=== PATIENT | female | born 1955 | race African-American/Black ===

== ENCOUNTER 2017-10-25 08:31 | Inpatient (IN) ==
--- NOTE | 2017-10-25 08:41 | Discharge Summary ---
<Lisbeth Clifton - Last Filed: 10/25/17 08:39> Orders not resulted at time of discharge: Pending orders 10/25/17 06:52 XR knee RT limited 1-2V [XR] Routine 10/25/17 08:38 H/H [Hemoglobin and Hematocrit] [HEME] Routine Date of Encounter: 10/25/17 - Discharge Diagnosis (1) Arthritis of knee, right Priority: Primary Status: Acute (2) Status post total knee replacement, right Priority: Primary Status: Acute - Hospital Course Hospital course: Ms. Govea is a 62 year old female - Time Spent with Patient Total time spent providing and/or coordinating discharge services: - Discharge Medications Home Medications: Aspirin Enteric Coated [Aspirin EC] 325 mg PO BID #20 tablet.dr 10/25/17 [Rx] Aspirin [Lo-Dose Aspirin EC] 81 mg PO DAILY 10/25/17 [History] Naproxen Sodium [Aleve] 220 mg PO Q12H PRN 10/25/17 [History] OxyCODONE Immed Rel [Roxicodone 5 MG] 5 mg PO Q6HR PRN 7 Days #28 tablet [Rx] Allergies/Adverse Reactions: 3 Allergy/AdvReac Type Severity Reaction Status Date / Time No Known Allergies Allergy Verified 10/25/17 09:14 Primary care physician: Marty Hernandez, - Patient Status Disposition: Home, Self-Care Condition: Good - Discharge Instructions Follow Up With: Marty Hernandez DO [Primary Care Provider] - <David Gerardo - Last Filed: 10/27/17 08:10> Orders not resulted at time of discharge: Pending orders 10/25/17 06:52 XR knee RT limited 1-2V [XR] Routine 10/25/17 08:38 H/H [Hemoglobin and Hematocrit] [HEME] Routine Date of Encounter: 10/27/17 Time of Encounter: 08:09 - Discharge Diagnosis (1) Obesity (BMI 30.0-34.9) Priority: Secondary Status: Chronic (2) Arthritis of knee, right Priority: Primary Status: Chronic (3) Status post total knee replacement, right Priority: Primary Status: Acute - Hospital Course Hospital course: Ms. Govea is a 62 year old female Status post right total knee replacement. The patient had an uneventful postoperative course. They received antibiotics and physical therapy and were discharged in stable condition. There will follow -up in the office in 2 weeks. - Time Spent with Patient Total time spent providing and/or coordinating discharge services: Primary care physician: Marty Hernandez, - Patient Status Functional capacity at discharge: uses cane/walker Overall status at discharge: patient is progressing back to baseline
[2017-10-25] MEDS ORDERED: Lidocaine -MPF 1% 2 ML VIAL ID ONE (08:56)
[2017-10-25] MEDS ORDERED: CeFAZolin Syr 2,000MG/20 ML 2,000 MG/20 ML SYRINGE IVPB ONE (08:56)
--- NOTE | 2017-10-25 08:59 | History & Physical Report ---
Date of Encounter: 10/25/17 Time of Encounter: 08:58 24 Hour HP Update - Instructions Instructions: If the History and Physical is less than 30 days old and was completed prior to A.M. admission and or procedure and has NOT been updated on calendar day of procedure please complete this update prior to performing procedure. - Update Patient reports changes in Medical Condition: No Changes in examination, assessment, or condition: No Changes in Medication: No Preop tests/diagnostics Reviewed: Yes Surgery Remains Indicated: Yes Consent for Planned Operative Procedure(s) Verified: Yes - Pre-Operative Checklist Preoperative Checklist Indicated: No Prophylactic Antibiotic Ordered: Yes Is VTE Prophylaxis Indicated?: Yes
[2017-10-25] MEDS ORDERED: Ringers Solution, Lactated 1,000 ML IVC SCH (09:00)
--- NOTE | 2017-10-25 09:03 | Anesthesia Evaluation PreOp ---
Date of Encounter: 10/25/17 Time of Encounter: 09:00 - Past History Planned Operation: Right Total Knee Arthroplasty Cardiac History: Denies any Significant Hx Pulmonary History: Denies Any Significant HX [employer] History: Denies Any Significant HX Other Medical History: Denies Any Significant HX, Other (knee osteoarthritis) Anesthesia History: No Prior Anesthetic Complications, Past Anesthesia (tubal) : No Alcohol Use: none Drug use: none Medications and Allergies Aspirin Enteric Coated [Aspirin EC] 325 mg PO BID #20 tablet.dr 10/25/17 [Rx] OxyCODONE Immed Rel [Roxicodone 5 MG] 5 mg PO Q6HR PRN 7 Days #28 tablet [Rx] 3 Allergy/AdvReac Type Severity Reaction Status Date / Time No Known Allergies Allergy Unverified 10/18/17 09:57 - Meds/Allergy Pre-op Review Medications Reviewed: Yes Allergies Reviewed: Yes Beta Blockers on Current Med List: No Anesthesia Results - Labs Laboratory Tests 10/18/17 10/18/17 10/18/17 10:05 10:05 10:05 WBC 3.7 L Hgb 14.0 Hct 45.1 H Plt Count 199 INR 1.0 Sodium 138 Potassium 4.3 Chloride 106 Carbon Dioxide 23 BUN 17 Creatinine 0.62 Anesthesia Exam O2 Sat Height 1.52 m Height 1.52 m Weight 69.853 kg Weight 69.853 kg O2 Sat by Pulse Oximetry 96 Vital Signs Temp Pulse Resp BP Pulse Ox 98.2 F 57 18 118/75 96 10/25/17 08:56 10/25/17 08:56 10/25/17 08:56 10/25/17 08:56 10/25/17 08:56 NPO (# of Hours): > 8 hrs Pain Scale: 0 Pain Scale Used: Numeric (1 - 10) - HEENT Pupil (Motor): Pupils equal, EOMI Mallampati: III Teeth: Normal Oral Opening: Greater than 3 - [employer] LOC: Oriented [employer] Motor: Normal RUE, Normal LUE, Normal RLE, Normal LLE, Normal Face [employer] Sensory: Normal: RUE, LUE, RLE, LLE, Face - Cardiac Rhythm: Regular Murmur: None JVD: No Carotid Bruit: No - Pulmonary Breath Sounds: bilateral Clear Respiratory Effort: Symmetrical Anesthesia Assess/Plan ASA Score: 1 Modified Rc Scale for Level of Consciousness: Cooperative, oriented, and tranquil Anesthetic Plan: General, Regional (Right Fem. Nerve Block) Autologous Blood: Yes Monitoring Plan: Standard Monitors Recovery Plan: PACU
[2017-10-25] MEDS ORDERED: *HR* Propofol 200 MG/20 ML VIAL IVP ONE (09:37)
[2017-10-25] MEDS ORDERED: *HR* Midazolam HCl 2 MG/2 ML VIAL ONE (09:37)
[2017-10-25] MEDS ORDERED: *HR* FentaNYL (PF) 100 MCG/2 ML VIAL ONE (09:37)
[2017-10-25] MEDS ORDERED: Ethanol\\Acetic Acid\\Na Ace\\Ben 1,000 ML IRRIG.SOLN IR ONE (09:38)
[2017-10-25] MEDS ORDERED: Lidocaine -MPF 2% 2 ML VIAL ONE (09:39)
[2017-10-25] MEDS ORDERED: ROPIVACAINE HCL/PF 0.5% 30 ML VIAL ONE (09:40)
[2017-10-25] MEDS ORDERED: Bupivacaine/Clonidine Syringe 1 EACH SYRINGE ONE (09:46)
--- NOTE | 2017-10-25 10:01 | Anesthesia Procedures ---
Date of Encounter: 10/25/17 Time of Encounter: 09:58 Procedures: Anesthesia - Nerve Block Procedure Date: 10/25/17 Time: 09:58 Allergies/Adv Reactions: No Known Allergies Allergy (Verified 10/25/17 09:14) Pre-op Diagnosis: right knee oa Surgical Procedure: right total knee Checklist: Correct Patient Identifier, Correct procedure, History checked Correct side: Right Blood Thinner: No Monitor Applied: EKG, BP, Pulse Oximetry Supplemental Oxygen via Nasal Cannula (L/min): 2 Sedation: Versed (mg): 2 Sedation: Fentanyl (mcg): 50 Indication: Post Op Analgesia Pre-op Neuro Deficits: No Block Type: Femoral, Other (ipack) Catheter placed: No Sterile Technique: Yes Ultrasound used: Yes Anatomy identified: Yes Visual spread of Local: Yes Neuro Stimulation: No Blood on Needle Aspiration: No Smooth Injection of Local: Yes Pain with Injection of Local: No Prep: Chlorhexadine Needle: 22 x 50 mm Stimuplex Local: 0.25% Bupivicaine w/Clonidine 20 mcg/cc (ipack-20cc), Ropivacaine (0.5% femoral 30cc) Volume (cc): 50 Number of Attempts: 1 Complications: None/effective block
[2017-10-25] MEDS ORDERED: Ondansetron 4 MG/2 ML VIAL ONE (10:15)
[2017-10-25] MEDS ORDERED: Dexamethasone 4 MG/ML VIAL ONE (10:15)
[2017-10-25] MEDS ORDERED: *HR* HYDROmorphone 2 MG TABLET PO PRN (10:36)
[2017-10-25] MEDS ORDERED: Ondansetron 4 MG/2 ML VIAL IVP ONE (10:36)
[2017-10-25] MEDS ORDERED: *HR* OxyCODONE Immed Rel 5 MG TABLET PO PRN (10:36)
--- NOTE | 2017-10-25 10:42 | Orthopedic Operative Note ---
Date of procedure: 10/25/17 Pre-op diagnosis: Right knee arthritis Post-op diagnosis: same Procedure: Procedure: Right Total knee replacement Estimated blood loss: 200 cc Hardware: Metal and polyethylene replacement. Arthrex Femur: 3 Tibia: 3 PS insert: 14 Patella: 30 Exam Under anesthesia: Loss of full extension 20 degrees flexion to 90 degrees. Varus alignment. Procedural Notes: Grade 4 arthritic changes all 3 compartments. Operative procedure: The patient was brought to the operating room and placed on the operating room table. After general anesthesia was administered the operative knee was examined. Findings were noted in the exam under anesthesia. The operative extremity was prepped and draped in sterile surgical fashion. The patient received IV antibiotics prior to skin incision. A standard midline incision was made centered over the patella. The incision was made through the skin and subcutaneous tissue. A medial parapatellar tendon approach was performed. Care was taken to preserve tissue along the medial aspect of the patella. And to protect the patella tendon. The deep MCL was released off the medial tibia. The infra patella fat pad was excised. Knee was brought into flexion. Patient noted to have grade 4 arthritic changes all 3 compartments. The entry hole was made for the intramedullary femoral guide. The guide was seated in 6 degrees of valgus. Anterior cut was made followed by the distal cut. The ACL the PCL the medial and the lateral menisci were excised. The tibia was subluxed forward. The entry hole was made for the intramedullary tibial guide. Guide was seated to resect 2 mm off the more abnormal side. The knee was brought into flexion the distal femur was sized to a 4. The femoral guide was seated, the anterior cut was made followed by the posterior condylar cut, followed by the chamfer cuts. The finishing guide was seated the box cut was made and the lug holes were drilled. The tibia was sized to a 4, the tibial tray was seated and prepared with the large drill followed by the fin cutter. Trial reduction revealed full extension no varus valgus instability with the appropriate 14 PS Karina. The patella was everted and cut was made at the level of the insertion of the quadriceps and patella tendon. The patella was sized 30 the guide was seated and the lug holes are drilled. Trial reduction revealed excellent patella tracking. All trial components were removed all bony surfaces were irrigated. The tibia was cemented first followed by the femur. 14 PS Karina was seated and the knee was brought into full extension. The patella was cemented and held in place with the patellar holding clamp. After the cement had hardened, the knee sat for 2 minutes with a antibacterial solution. The knee was then irrigated out with 2 L of pulse irrigation. The extensor mechanism was closed with #2 FiberWire suture and #2 PDS suture. The subcutaneous tissue was then irrigated and closed deep with #1 PDS suture superficially with 0 PDS suture and skin was closed with skin collins. The patient was then placed in a sterile dressing and a postoperative brace extubated and transferred to recovery room in stable condition. Anesthesia: GETA Surgeon: David Gerardo Was there an accountant assistant present: Yes Registrar Museum: Lisbeth Clifton Estimated blood loss (cc): 200 Condition: stable Disposition: PACU
[2017-10-25] MEDS: MORPHINE SUL Oral CONC 10 MG/0.5 ML ORAL.SYG SL PRN ×2 (11:41→11:50)
[2017-10-25 11:55] LABS: Hematocrit 42.1 % (35.3-44.9)
--- NOTE | 2017-10-25 11:58 | Anesthesia Evaluation Post Op ---
Date of Encounter: 10/25/17 Time of Encounter: 11:57 - Vital Signs Vital Signs: Vital Signs/O2 Sat, Most Current Temp Pulse Resp BP Pulse Ox 97.6 F 65 18 129/71 94 10/25/17 11:40 10/25/17 11:40 10/25/17 11:40 10/25/17 11:40 10/25/17 11:40 - Lungs Lungs: Clear Ascult./Percussion - Airway Airway: Non-obstructed - Cardiovascular Regular Rate - Mental Status Mental Status: Asleep with brisk response to light stimulation - Pain Pain Scale used: Mariia (Faces) (appears comfoertable) - Nausea Vomiting Nausea Vomiting: Not Present - Hydration Hydration: NPO - Discharge PostOp Status: Transfer Patient to floor
[2017-10-25] MEDS ORDERED: Temazepam 15 MG CAPSULE PO PRN (12:07)
[2017-10-25] MEDS ORDERED: MOM Conc 10 ML UD.LIQ PO PRN (12:07)
[2017-10-25] MEDS ORDERED: Ondansetron 4 MG/2 ML VIAL IVP PRN (12:07)
[2017-10-25] MEDS ORDERED: Sennosides 8.6 MG TABLET PO PRN (12:07)
[2017-10-25] MEDS ORDERED: Naloxone 0.4 MG/ML INJ IVP PRN (12:07)
[2017-10-25] MEDS ORDERED: traMADol 50 MG TABLET PO PRN (12:07)
[2017-10-25] MEDS: Ringers Solution, Lactated 1,000 ML IVC SCH (13:43)
[2017-10-25] MEDS: CeFAZolin Pre 2,000 MG/100 ML 2,000 MG/100 ML BAG IVPB SCH (16:40)
[2017-10-25] MEDS: *HR* Enoxaparin 30 MG/0.3 ML SYRINGE SQ SCH (16:41)
[2017-10-25] MEDS: *HR* OxyCODONE Immed Rel 5 MG TABLET PO PRN (16:42)
[2017-10-25] MEDS ORDERED: *HR* Enoxaparin 30 MG/0.3 ML SYRINGE SQ SCH (18:00)
[2017-10-25] MEDS: *HR* OxyCODONE/APAP 5/325 TABLET PO PRN (22:38)
[2017-10-26] MEDS: CeFAZolin Pre 2,000 MG/100 ML 2,000 MG/100 ML BAG IVPB SCH (00:55)
[2017-10-26 02:28] LABS: Hematocrit 36.2 % (35.3-44.9)
[2017-10-26 02:33] LABS: Hemoglobin 11.4 g/dL (11.5-15.4)
[2017-10-26 02:50] LABS: BUN/Creatinine Ratio 21 (6-26); Blood Urea Nitrogen 15 mg/dL (8-23); Calcium 8.6 mg/dL (8.6-10.3); Carbon Dioxide 27 mEq/L (23-29); Chloride 103 mEq/L (98-107); Glucose 124 mg/dL (70-105); Osmolality,Calculated 284 (280-300); Potassium 3.9 mEq/L (3.5-5.1); Sodium 136 mEq/L (136-145); eGFR For African Americans > 60 (> 60); eGFR For Non-African Americans > 60 (> 60)
[2017-10-26] MEDS: *HR* OxyCODONE Immed Rel 5 MG TABLET PO PRN ×4 (04:38→20:46)
[2017-10-26] MEDS: *HR* Enoxaparin 30 MG/0.3 ML SYRINGE SQ SCH ×2 (05:33→16:52)
--- NOTE | 2017-10-26 05:57 | Orthopedics Progress Note ---
Date of Encounter: 10/26/17 Time of Encounter: 05:57 - Assessment and Plan (1) Obesity (BMI 30.0-34.9) Current Visit: Yes Status: Chronic (2) Arthritis of knee, right Current Visit: Yes Status: Chronic (3) Status post total knee replacement, right Current Visit: Yes Status: Acute Subjective Interval history: Patient was seen this morning doing well without complaints. Afebrile vital signs stable. Operative extremity: Neurovascularly intact Dressing clean dry and intact Calves nontender Assessment and plan: Continue with postoperative care Hematocrit 36 Objective Vital signs: Vital Signs Temp Pulse Resp BP Pulse Ox 10/26/17 04:22 98.7 F 71 16 144/58 95 10/25/17 22:38 98.2 F 69 16 132/70 97 10/25/17 19:44 98.4 F 61 16 119/75 95 10/25/17 14:03 97.6 F 89 16 124/96 96 10/25/17 12:50 97.6 F 72 16 137/70 95 10/25/17 12:11 97.2 F L 71 16 129/72 95 10/25/17 11:55 68 18 135/71 96 10/25/17 11:40 97.6 F 65 18 129/71 94 10/25/17 11:30 69 18 136/69 95 10/25/17 11:20 68 18 132/71 99 10/25/17 11:10 97.6 F 72 22 149/74 98 10/25/17 09:56 48 100 10/25/17 09:36 56 131/78 99 10/25/17 08:56 98.2 F 57 18 118/75 96 Intake and Output 10/25/17 10/25/17 10/26/17 15:59 23:59 07:59 Intake Total 590 / 590 0 / 0 Output Total 200 / 200 0 / 0 Balance -200 / -200 590 / 590 0 / 0 Intake: IV Fluids 100 / 100 Ancef Premix 2,000 MG/100 ML 2, 100 / 100 000 mg In 100 ml @ 200 mls/hr IVPB Q8HR MARILYNN Rx#:[id number] Oral 490 / 490 0 / 0 Output: Urine 0 / 0 Estimated Blood Loss 200 / 200 Other: Meal Dinner Percent of Meal Consumed 25% # Voids 1 1 Weight 69.853 kg - Labs CBC & BMP: 10/26/17 01:53 10/26/17 01:53 Labs: Abnormal lab results Hgb 11.4 g/dL (11.5-15.4) L D 10/26/17 01:53 Glucose 124 mg/dL (70-105) H 10/26/17 01:53 - VTE Documentation of Mechanical Device: Venous foot pump, device Consult Discharge Plan - Plan Referrals: Marty Hernandez DO [Primary Care Provider] -
--- NOTE | 2017-10-26 12:34 | Event Note ---
Date of Encounter: 10/26/17 Time of Encounter: 12:34 PCR - POD#1 TKR Patient seen at bedside. Labs reviewed. Pain control: adequate Participating in PT. Remove brace while awake All questions and concerns addressed. Educated on use of incentive spirometer. Encouraged ambulation and proper hydration. Patient educated on post-operative restrictions and post-operative care. Addressed: see above Discharge plan: home with outpatient in AM*
[2017-10-26] MEDS: *HR* OxyCODONE/APAP 5/325 TABLET PO PRN (16:55)
[2017-10-27] MEDS: *HR* OxyCODONE Immed Rel 5 MG TABLET PO PRN ×4 (01:21→19:32)
[2017-10-27 02:00] LABS: BUN/Creatinine Ratio 15 (6-26); Blood Urea Nitrogen 9 mg/dL (8-23); Calcium 8.7 mg/dL (8.6-10.3); Carbon Dioxide 27 mEq/L (23-29); Chloride 99 mEq/L (98-107); Glucose 143 mg/dL (70-105); Osmolality,Calculated 279 (280-300); Potassium 3.7 mEq/L (3.5-5.1); Sodium 134 mEq/L (136-145); eGFR For African Americans > 60 (> 60); eGFR For Non-African Americans > 60 (> 60)
[2017-10-27 02:25] LABS: Hematocrit 35.7 % (35.3-44.9); Hemoglobin 11.3 g/dL (11.5-15.4)
[2017-10-27] MEDS: *HR* Enoxaparin 30 MG/0.3 ML SYRINGE SQ SCH ×2 (05:48→17:12)
[2017-10-27] MEDS: *HR* OxyCODONE/APAP 5/325 TABLET PO PRN (08:08)
[2017-10-27] MEDS: Ringers Solution, Lactated 1,000 ML IVC SCH ×2 (08:09→23:46)
--- NOTE | 2017-10-27 08:10 | Orthopedics Progress Note ---
Date of Encounter: 10/27/17 Time of Encounter: 08:10 - Assessment and Plan (1) Obesity (BMI 30.0-34.9) Current Visit: Yes Status: Chronic (2) Arthritis of knee, right Current Visit: Yes Status: Chronic (3) Status post total knee replacement, right Current Visit: Yes Status: Acute Subjective Interval history: Patient was seen this morning doing well without complaints. Afebrile vital signs stable. Operative extremity: Neurovascularly intact Dressing clean dry and intact Calves nontender Assessment and plan: Continue with postoperative care Hematocrit 35 discharged today Objective Vital signs: Vital Signs Temp Pulse Resp BP Pulse Ox 10/27/17 03:16 99.5 F 75 14 145/65 93 10/26/17 23:05 99.3 F 69 14 159/72 93 10/26/17 19:21 100.1 F H 84 18 161/73 94 10/26/17 17:05 98.1 F 74 16 124/71 96 10/26/17 11:51 98.1 F 72 16 142/69 96 Intake and Output 10/26/17 10/27/17 10/27/17 23:59 07:59 15:59 Intake Total 635 / 635 0 / 0 1000 / 1000 Output Total 0 / 0 Balance 635 / 635 0 / 0 1000 / 1000 Intake: IV Fluids 1000 / 1000 Lactated Ringers 1,000 ML @ 75 1000 / 1000 mls/hr IVC .[id number] MARILYNN Rx#: [id number] Oral 635 / 635 0 / 0 Output: Urine 0 / 0 Other: Meal Dinner Percent of Meal Consumed 0% # Voids 1 1 - Labs CBC & BMP: 10/27/17 01:20 10/27/17 01:20 Labs: Abnormal lab results Hgb 11.3 g/dL (11.5-15.4) L 10/27/17 01:20 Sodium 134 mEq/L (136-145) L 10/27/17 01:20 Glucose 143 mg/dL (70-105) H 10/27/17 01:20 Calculated Osmolality 279 (280-300) L 10/27/17 01:20 - VTE Documentation of Mechanical Device: Venous foot pump, device Consult Discharge Plan - Plan Referrals: Marty Hernandez DO [Primary Care Provider] -
[2017-10-28] MEDS: *HR* OxyCODONE Immed Rel 5 MG TABLET PO PRN ×3 (01:30→14:07)
[2017-10-28] MEDS: *HR* Enoxaparin 30 MG/0.3 ML SYRINGE SQ SCH (05:10)
--- NOTE | 2017-10-28 06:49 | Orthopedics Progress Note ---
Date of Encounter: 10/28/17 Time of Encounter: 06:49 - Assessment and Plan (1) Obesity (BMI 30.0-34.9) Current Visit: Yes Status: Chronic (2) Arthritis of knee, right Current Visit: Yes Status: Chronic (3) Status post total knee replacement, right Current Visit: Yes Status: Acute Subjective Interval history: Patient was seen this morning doing well without complaints. Afebrile vital signs stable. Operative extremity: Neurovascularly intact Dressing clean dry and intact Calves nontender Assessment and plan: Continue with postoperative care Discharged today Objective Vital signs: Vital Signs Temp Pulse Resp BP Pulse Ox 10/28/17 03:23 99.6 F 82 14 123/64 93 10/27/17 23:35 99.2 F 85 16 133/71 95 10/27/17 18:46 99.7 F H 84 16 132/72 94 10/27/17 16:39 97.7 F 77 94 116/56 99 10/27/17 12:25 99.2 F 90 17 138/67 93 10/27/17 08:20 99.3 F 103 16 109/50 94 Intake and Output 10/27/17 10/27/17 10/28/17 15:59 23:59 07:59 Intake Total 1000 / 1000 740 / 740 250 / 250 Output Total 500 / 500 400 / 400 Balance 500 / 500 340 / 340 250 / 250 Intake: IV Fluids 1000 / 1000 Lactated Ringers 1,000 ML @ 75 1000 / 1000 mls/hr IVC .[id number] MARILYNN Rx#: [id number] Oral 740 / 740 250 / 250 Output: Urine 500 / 500 400 / 400 Other: Meal Lunch Percent of Meal Consumed 45% # Voids 1 1 - Labs CBC & BMP: 10/27/17 01:20 10/27/17 01:20 Labs: Abnormal lab results Hgb 11.3 g/dL (11.5-15.4) L 10/27/17 01:20 Sodium 134 mEq/L (136-145) L 10/27/17 01:20 Glucose 143 mg/dL (70-105) H 10/27/17 01:20 Calculated Osmolality 279 (280-300) L 10/27/17 01:20 - VTE Documentation of Mechanical Device: Venous foot pump, device Consult Discharge Plan - Plan Referrals: Marty Hernandez DO [Primary Care Provider] -
[2017-10-28 12:08] VITALS: BP 122/61
--- NOTE | 2017-10-28 12:26 | Event Note ---
Date of Encounter: 10/28/17 Time of Encounter: 12:26 PCR - POD#3 TKR Patient seen at bedside. Labs reviewed. Pain control: adequate Participating in PT. Remove brace while awake All questions and concerns addressed. Educated on use of incentive spirometer. Encouraged ambulation and proper hydration. Patient educated on post-operative restrictions and post-operative care. Addressed: see above Discharge plan: ECF today
--- NOTE | 2017-10-28 12:26 | Event Note ---
Date of Encounter: 10/27/17 Time of Encounter: 16:00 PCR - POD#2 TKR Patient seen at bedside. Labs reviewed. Pain control: adequate Participating in PT. Remove brace while awake All questions and concerns addressed. Educated on use of incentive spirometer. Encouraged ambulation and proper hydration. Patient educated on post-operative restrictions and post-operative care. Addressed: see above Discharge plan: ECF once approved, auth placed.
--- NOTE | 2017-10-28 12:28 | Physician Discharge Referral ---
ExtendedCare Referral Info Transfer To: [facility] Provider in Charge: Provider in Charge after Transfer: PCP Institutional Level of Care: Skilled - Diagnosis (1) Arthritis of knee, right Priority: Primary Status: Chronic (2) Status post total knee replacement, right Priority: Primary Status: Acute Expected Duration of Placement: < 30 days Prognosis: Good Aware of Diagnosis: Patient Aware of Prognosis: Patient - Transfer Medications Home Medications: Aspirin Enteric Coated [Aspirin EC] 325 mg PO BID #20 tablet. 10/25/17 [Rx] Aspirin [Lo-Dose Aspirin EC] 81 mg PO DAILY 10/25/17 [History] Naproxen Sodium [Aleve] 220 mg PO Q12H PRN 10/25/17 [History] OxyCODONE Immed Rel [Roxicodone 5 MG] 5 mg PO Q6HR PRN 7 Days #28 tablet [Rx] Allergies/Adverse Reactions: 3 Allergy/AdvReac Type Severity Reaction Status Date / Time No Known Allergies Allergy Verified 10/25/17 09:14 - Respiratory Orders None Smoking Cessation: Smoking cessation has been advised. For more information, call the [employer] Tobacco Quit Line at 6-473-DNDO-NOW. - Mobility Orders Chair, Ambulate - Rehabiliation Orders Rehab Potential: Good Rehab Orders: ROM Exercises, Evaluation for Physical Therapy, Evaluation for Occupational Therapy Other: Opsite dressing, leave intact until first post-operative visit. If dressing becomes >50% saturated, contact office, remove dressing and place appropriate dressing in its place. Do not allow for dressing to get wet. Zipline in place, plan to remove at post-operative day #14-16. Total Joint Precautions x 6 weeks Apply cold therapy wrap 3-6x/day for 20 minutes at a time. Encourage ambulation throughout the day Use Incentive spirometer 10x/hour. Elevate affected extremity above heart as tolerated. Brace: Wear knee immobilizer at night x 2 weeks.~ - Diet Orders Regular CERTIFICATION: I certify that the transfer of the above named patient to an Extended Care Facility is necessary for the continuing treatment of the diagnosis listed. The above information is true and accurate reflection of patient's current condition. Confidential - Redisclosure prohibited without a patient's written consent.
== END 2017-10-28 15:14 | disposition home or self-care (01) | DRG 470 ==
LOC: SAMDAY 08:31 → 3NENU 12:02
PROVIDERS: ADMIT Orthopaedic Surgery; ATTEND Orthopaedic Surgery